=== PATIENT | female | born 1985 | race Caucasian/White ===

== ENCOUNTER 2023-09-18 13:54 | Outpatient (CLI) | payer OTHER, SELFPAY ==
[2023-09-18 14:55] LABS: Basophils Percent Auto 0.5 % (0.2-1.2); Eosinophils Percent Auto 0.5 % (0-4.4); Hematocrit 39.9 % (37.0-47.0); Hemoglobin 13.4 g/dL (12.0-15.0); Immature Granulocyte Absolute 0.02 K/mm3 (0.00-0.031); Immature Granulocyte Percent A 0.3 % (0-0.5); Lymphocytes Absolute Auto 1.83 K/mm3 (0.9-3.2); Lymphocytes Percent Auto 29.4 % (18.3-44.2); Mean Corpuscular HGB Conc 33.6 g/dl (32-36); Mean Corpuscular Hemoglobin 30.7 pg (26-34); Mean Corpuscular Volume 91.3 fl (80-100); Mean Platelet Volume 8.5 fl (7.4-10.4); Monocytes Absolute Auto 0.4 K/mm3 (0.1-0.6); Monocytes Percent Auto 6.7 % (2.6-8.5); Neutrophils Absolute Auto 3.9 K/mm3 (1.3-6.7); Neutrophils Percent Auto 62.6 % (45.5-73.1); Platelet Count Result 233 k/mm3 (150-375); Red Blood Count 4.37 M/mm3 (4.2-5.4); Red Cell Distribution Width 11.5 % (11.5-14.5); White Blood Count 6.2 K/mm3 (4.5-10.0)
[2023-09-18 15:07] LABS: CRP < 0.5 mg/dL (<1.0)
[2023-09-18 15:59] LABS: Erythrocyte Sedimentation Rate 5 mm/hr (0-20)
[2023-09-22 23:59] LABS: Cyclic Citrullinated Peptide <16 Units (<20)
== END 2023-09-18 13:55 | disposition home or self-care (01) ==
LOC: ANHLAB 14:00
PROVIDERS: PCP Family Medicine; Visit Provider Orthopaedic Surgery
DX: M70.72 Other bursitis of hip, left hip (principal); M70.71 Other bursitis of hip, right hip
CPT/HCPCS: 36415; 85025; 85652; 86038; 86039; 86140; 86200